=== PATIENT | female | born 1970 | race Caucasian/White ===

== ENCOUNTER 2018-02-01 17:10 | Emergency (ER) | payer OTHER ==
--- NOTE | 2018-02-01 17:35 | Emergency Department Record ---
History of Present Illness - General Chief Complaint: Abdominal Pain Stated Complaint: ABD PAIN Time Seen by Provider: 02/01/18 17:27 Source: Patient, RN notes reviewed Mode of Arrival: Ambulatory - History of Present Illness Initial Comments: patient states 5 days of epigastric abd pain and and had a bile tasting burps 5 days ago. Today she ate shrimp and butter and that went well and a granola bar. indigestion after eating and she was seen at [facility] today and sent to ED by Patrica and her primary [facility]. UA was negative . No dysuria . PSH carpal tunnel rebecca colonoscopy 2009 negative and she had a hysteropopia because she has a thicken uterus and fibroid cysts. June 2017, EKG done by [facility] and I reviewed it NSR , No acute changes. Onset/Timin -: Days(s) Severity: Mild Severity scale (1-10): 1 - Related Data Home Medications Medication Instructions Recorded Confirmed Last Taken Aspirin/Acetaminophen/Caffeine 1 each PO BID PRN 02/01/18 02/01/18 02/01/18 [Excedrin Migraine Caplet] Previous Rx's Medication Instructions Recorded Omeprazole 20 mg PO DAILY #30 cap. 02/01/18 Allergies Allergy/AdvReac Type Severity Reaction Status Date / Time Penicillins Allergy Intermediate RASH Verified 02/01/18 17:24 Travel Screening - Travel/Exposure Within Last 30 Days Have you traveled within the last 30 days?: No - Travel/Exposure Within Last Year Have you traveled outside the [place] in the last year?: No - Additonal Travel Details Have you been exposed to anyone with a communicable illness?: No - Travel Symptoms Symptom Screening: None Review of Systems Reviewed: No additional complaints except as noted below Constitutional: Reports: As per HPI. Denies: Chills, Fever, Malaise, Night sweats, Weakness, Weight change Eyes: Reports: As per HPI. Denies: Eye discharge, Eye pain, Photophobia, Vision change ENT: Reports: As per HPI. Denies: Congestion, Dental pain, Ear pain, Epistaxis , Hearing loss, Throat pain Respiratory: Reports: As per HPI. Denies: Cough, Dyspnea, Hemoptysis, Stridor, Wheezes Cardiovascular: Reports: As per HPI. Denies: Arrhythmia, Chest pain, Dyspnea on exertion, Edema, Murmurs, Orthopnea, Palpitations, Paroxysmal nocturnal dyspnea, Rheumatic Fever, Syncope Endocrine: Reports: As per HPI. Denies: Fatigue, Heat or cold intolerance, Polydipsia, Polyuria Gastrointestinal: Reports: As per HPI, Abdominal pain, Diarrhea, Nausea. Denies : Constipation, Hematemesis, Hematochezia, Melena, Vomiting Genitourinary: Reports: As per HPI. Denies: Abnormal menses, Discharge, Dyspareunia, Dysuria, Frequency, Hematuria, Incontinence, Retention, Urgency Musculoskeletal: Reports: As per HPI. Denies: Arthralgia, Back pain, Gout, Joint swelling, Myalgia, Neck pain Skin: Reports: As per HPI. Denies: Bruising, Change in color, Change in hair/ nails, Lesions, Pruritus, Rash Neurological: Reports: As per HPI. Denies: Abnormal gait, Confusion, Headache, Numbness, Paresthesias, Seizure, Tingling, Tremors, Vertigo, Weakness Psychiatric: Reports: As per HPI. Denies: Anxiety, Auditory hallucinations, Depression, Homicidal thoughts, Suicidal thoughts, Visual hallucinations Hematological/Lymphatic: Reports: As per HPI. Denies: Anemia, Blood Clots, Easy bleeding, Easy bruising, Swollen glands Past Medical History - SOCIAL HISTORY Smoking Status: Never smoker Alcohol Use: Rare, Occasional Drug Use: None - RESPIRATORY Hx Respiratory Disorders: No - CARDIOVASCULAR Hx Cardio Disorders: No - NEURO Hx Neuro Disorders: Yes Hx Seizures: Yes (as teenager but none since) - GI Hx GI Disorders: Yes Hx Reflux: Yes - Hx Bladder Problem: Yes (suspension) - ENDOCRINE Hx Endocrine Disorders: No - MUSCULOSKELETAL Hx Musculoskeletal Disorders: No - PSYCH Hx Psych Problems: Yes Hx Depression: Yes - HEMATOLOGY/ONCOLOGY Hx Hematology/Oncology Disorders: No Family Medical History Any Significant Family History?: Yes Hx Cancer: Father, Grandparents Hx HTN: Mother, Grandparents Hx Stroke: Grandparents Physical Exam - General General Appearance: Alert, Oriented x3, Cooperative, No acute distress - Head Head exam: Normal inspection - Eye Eye exam: Normal appearance, PERRL Pupils: Normal accommodation - ENT ENT exam: Normal exam, Mucous membranes moist, Normal external ear exam, Normal orophraynx, TM's normal bilaterally Ear exam: Normal external inspection. negative: External canal tenderness Nasal Exam: Normal inspection. negative: Discharge, Sinus tenderness Mouth exam: Normal external inspection, Tongue normal Teeth exam: Normal inspection. negative: Dental caries Throat exam: Normal inspection. negative: Tonsillar erythema, Tonsillar exudate - Neck Neck exam: Normal inspection, Full ROM. negative: Tenderness - Respiratory Respiratory exam: Normal lung sounds bilaterally. negative: Respiratory distress - Cardiovascular Cardiovascular Exam: Regular rate, Normal rhythm, Normal heart sounds - GI/Abdominal GI/Abdominal exam: Soft, Normal bowel sounds, Tenderness (epigastric indigestion and nausea) - Rectal Rectal exam: Deferred - exam: Deferred - Extremities Extremities exam: Normal inspection, Full ROM, Normal capillary refill. negative: Tenderness - Back Back exam: Reports: Normal inspection, Full ROM. Denies: Muscle spasm, Rash noted, Tenderness - Neurological Neurological exam: Alert, Normal gait, Oriented X3, Reflexes normal - Psychiatric Psychiatric exam: Normal affect, Normal mood - Skin Skin exam: Dry, Intact, Normal color, Warm Course Vital Signs 02/01/18 17:17 Temperature 97.4 F L Pulse Rate 85 Respiratory 16 Rate Blood Pressure 124/53 Pulse Ox 98 - Reevaluation(s) Reevaluation #1: peptobismal giving her black stools. She drank one bottle over the last week. 02/01/18 18:56 Medical Decision Making - Data Complexity MDM Data: Labs Ordered and/or Reviewed, X-Ray Ordered and/or Reviewed (US of abd negative) - Lab Data Result diagrams: 02/01/18 17:30 02/01/18 17:30 Disposition Clinical Impression: Epigastric abdominal pain GERD (gastroesophageal reflux disease) Qualifiers: Esophagitis presence: without esophagitis Qualified Code(s): K21.9 - Gastro- esophageal reflux disease without esophagitis Gastritis Qualifiers: Gastritis type: unspecified gastritis Chronicity: acute Gastritis bleeding: without bleeding Qualified Code(s): K29.00 - Acute gastritis without bleeding Disposition: Home, Self-Care Condition: (1) Good Instructions: Gastritis (ED), Gastroesophageal Reflux Disease (ED) Additional Instructions: follow up with family next week nigel one table spoon after meals and bedtime Prescriptions: Omeprazole 20 mg PO DAILY #30 Forms: Patient Portal Access Time of Disposition: 18:55 Quality - Quality Measures Quality Measures: N/A - Blood Pressure Screening Does Patient Have Any of the Following: No Blood Pressure Classification: Pre-Hypertensive BP Reading Systolic Measurement: 124 Diastolic Measurement: 53 Screening for High Blood Pressure: < Pre-Hypertensive BP, F/U Documented > [ G8950] Pre-Hypertensive Follow-up Interventions: Referral to alternative/primary care provider.
[2018-02-01] MEDS ORDERED: 0.9 % SODIUM CHLORIDE 1,000 ML BAG IV ONE (17:37)
[2018-02-01] MEDS ORDERED: MAGNESIUM HYDROXIDE/AL HYDROX 30 ML, LIDOCAINE VISC 2% 15ML 15 ML PO ONE ×2 (17:38)
[2018-02-01 17:49] LABS: BASO % 0.4 % (0-6); EOS % 7.5 % (0-6); HEMOGLOBIN 12.6 gm/dl (11.6-16.0); LYMPH % 36.8 % (16-45); MEAN CELL VOLUME 86.7 fl (81-97); MEAN CORPUSCULAR HGB CONC 32.3 g/dl (32-36); MEAN PLATELET VOLUME 9.2 fl (7.4-10.4); MONO % 7.3 % (0-9); PLATELET COUNT 274 K/uL (130-400); RED CELL DISTRIBUTION WIDTH 13.3 % (11.5-14.5); WHITE BLOOD COUNT W/O DIFF 5.1 K/uL (4.2-12.2)
[2018-02-01 17:56] LABS: URINE APPEARANCE CLEAR; URINE BILIRUBIN NEGATIVE (NEGATIVE); URINE BLOOD NEGATIVE (NEGATIVE); URINE COLOR YELLOW; URINE GLUCOSE (UA) NEGATIVE (NEGATIVE); URINE KETONE TRACE (NEGATIVE); URINE LEUKOCYTE ESTERASE NEGATIVE (NEGATIVE); URINE NITRITE NEGATIVE (NEGATIVE); URINE PROTEIN NEGATIVE (NEGATIVE); URINE UROBILINOGEN 0.2 E.U./dL (0.20 - 1.00)
[2018-02-01 17:58] LABS: HCG,QUALITATIVE URINE NEGATIVE (NEGATIVE)
[2018-02-01 18:06] LABS: BLOOD UREA NITROGEN 15 mg/dL (6-20); CREATININE 0.7 mg/dL (0.5-0.9); EST GLOMERULAR FILTRATION RATE > 60 mL/min
[2018-02-01 18:07] LABS: TOTAL PROTEIN 7.5 g/dL (6.6-8.7)
[2018-02-01 18:09] LABS: GLUCOSE,RANDOM 103 mg/dL (74-109)
[2018-02-01 18:11] LABS: ALT/SGPT 14 U/L (<33)
[2018-02-01 18:12] LABS: ALBUMIN 4.3 g/dL (4.0-5.0); ALKALINE PHOSPHATASE 59 U/L (35-104); AST/SGOT 15 U/L (10.0-35.0); LIPASE 52 U/L (13-60)
[2018-02-01 18:14] LABS: BILIRUBIN,DIRECT < 0.2 mg/dL (0-0.3)
== END 2018-02-01 19:08 | disposition home or self-care (01) ==
LOC: ER 17:14
DX: K21.9 Gastro-esophageal reflux disease without esophagitis (principal); K29.00 Acute gastritis without bleeding; R10.31 Right lower quadrant pain
CPT/HCPCS: 76700; 80048; 80076; 81003; 81025; 83690; 85025; 99284; J7030

== ENCOUNTER 2018-10-10 21:34 | Emergency (ER) | payer OTHER ==
--- NOTE | 2018-10-10 22:41 | Emergency Department Record ---
History of Present Illness - General Chief complaint: Female Urogenital Problem Stated complaint: FEMALE ISSUES Time Seen by Provider: 10/10/18 22:26 Source: Patient Mode of Arrival: Ambulatory Limitations: No limitations - History of Present Illness Initial comments: 48 yo female presents to ED for evaluation of a "hole" between the posterior aspect of the vagina and the rectum. Patient reports that she first noticed the symptoms approximately 2 days ago, denies fevers, chills, or discharge from the area. Patient denies trauma or injury. Patient denies fevers, chills, or recent illness. Patient does report an episiotomy approximately 17 years ago, reports that she has been participating in a newer boot-camp work-out. Onset/Timin -: Days(s) Location: [place], Perineum Severity: Moderate Consistency: Constant Improves with: None Worsens with: None Associated Symptoms: Denies other symptoms - Related Data Allergies Allergy/AdvReac Type Severity Reaction Status Date / Time Penicillins Allergy Intermediate RASH Verified 10/10/18 22:03 Travel Screening - Travel/Exposure Within Last 30 Days Have you traveled within the last 30 days?: No - Travel Symptoms Symptom Screening: None Review of Systems Constitutional: Denies: Chills, Fever, Malaise, Night sweats Eyes: Denies: Eye discharge, Eye pain ENT: Denies: Congestion, Ear pain, Epistaxis Respiratory: Denies: Cough, Dyspnea Cardiovascular: Denies: Chest pain, Dyspnea on exertion Endocrine: Denies: Fatigue, Heat or cold intolerance Gastrointestinal: Denies: Abdominal pain, Nausea, Vomiting Genitourinary: Denies: Incontinence, Retention Musculoskeletal: Denies: Arthralgia, Back pain Skin: Denies: Bruising, Change in color Neurological: Denies: Abnormal gait, Confusion, Seizure Psychiatric: Denies: Anxiety Hematological/Lymphatic: Denies: Anemia, Blood Clots Past Medical History - SOCIAL HISTORY Smoking Status: Never smoker - RESPIRATORY Hx Respiratory Disorders: No - CARDIOVASCULAR Hx Cardio Disorders: No - NEURO Hx Neuro Disorders: Yes Hx Headaches: Yes Hx Seizures: Yes (as teenager but none since) - GI Hx GI Disorders: Yes Hx Reflux: Yes - Hx Genitourinary Disorders: No Hx Bladder Problem: Yes (suspension) - ENDOCRINE Hx Endocrine Disorders: No - MUSCULOSKELETAL Hx Musculoskeletal Disorders: No - PSYCH Hx Psych Problems: Yes Hx Depression: Yes - HEMATOLOGY/ONCOLOGY Hx Hematology/Oncology Disorders: No Family Medical History Any Significant Family History?: Yes Hx Cancer: Father, Grandparents Hx HTN: Mother, Grandparents Hx Stroke: Grandparents Physical Exam - General General Appearance: Alert, Oriented x3, Cooperative, No acute distress Limitations: No limitations - Head Head exam: Atraumatic, Normocephalic, Normal inspection Head exam detail: negative: Abrasion, Contusion, Bautista's sign, General tenderness, Hematoma, Laceration - Eye Eye exam: Normal appearance. negative: Conjunctival injection, Periorbital swelling, Periorbital tenderness, Scleral icterus - ENT Ear exam: negative: Auricular hematoma, Auricular trauma Nasal Exam: negative: Active bleeding, Discharge, Dried blood, Foreign body Mouth exam: negative: Drooling, Laceration, Muffled voice, Tongue elevation - Neck Neck exam: Normal inspection. negative: Meningismus, Tenderness - Respiratory Respiratory exam: Normal lung sounds bilaterally. negative: Rales, Respiratory distress, Rhonchi, Stridor - Cardiovascular Cardiovascular Exam: Regular rate, Normal rhythm, Normal heart sounds - GI/Abdominal GI/Abdominal exam: Soft. negative: Rebound, Rigid, Tenderness - exam: Other (There appears to be area of tissues dehiscence to the posterior fourchette of the vaginal opening, ? from previous epiosotomy) - Extremities Extremities exam: Normal inspection. negative: Pedal edema, Tenderness - Back Back exam: Denies: CVA tenderness (R), CVA tenderness (L) - Neurological Neurological exam: Alert, Normal gait, Oriented X3 - Psychiatric Psychiatric exam: Normal affect, Normal mood - Skin Skin exam: Normal color. negative: Abrasion Type of lesion: negative: abrasion Course Vital Signs 10/10/18 21:54 Temperature 98.2 F Pulse Rate [ 65 Left] Respiratory 16 Rate Blood Pressure 132/80 [Left] Pulse Ox 99 - Reevaluation(s) Reevaluation #1: 10/10/18 22:57 Patient was seen and examined, will attempt to reach the on-call for Dr. Padilla for consultation and to arrange for follow-up. Reevaluation #2: 10/10/18 23:23 Case was discussed with Dr. Ward, will have the patient call Dr. Argueta's office in the morning for a follow-up appointment with Dr. Murray in 1-2 days as directed. Patient was called re: the plan of care and instructed to avoid any further strenuous activity/exercise until seen by Dr. Murray. Patient appears stable for discharge at this time. Disposition Disposition: Discharge Clinical Impression: Episiotomy dehiscence Disposition: Home, Self-Care Condition: (2) Stable Instructions: Wound Dehiscence (ED) Additional Instructions: Return to ED if your symptoms worsen or if you have any concerns. Follow-up with Dr. Padilla in 3-5 days as directed. Forms: Patient Portal Access Time of Disposition: 22:41 Quality - Quality Measures Quality Measures: N/A - Blood Pressure Screening Does Patient Have Any of the Following: No Blood Pressure Classification: Normal BP Reading Systolic Measurement: 101 Diastolic Measurement: 65 Screening for High Blood Pressure: < Normal BP, F/U Not Required > [G8783]
== END 2018-10-10 22:54 | disposition home or self-care (01) ==
LOC: ER 21:34
DX: O90.1 Disruption of perineal obstetric wound (principal)
CPT/HCPCS: 99283

== ENCOUNTER 2019-02-06 21:02 | Emergency (ER) | payer OTHER ==
[2019-02-06 21:19] LABS: URINE APPEARANCE CLEAR; URINE BILIRUBIN NEGATIVE (NEGATIVE); URINE BLOOD NEGATIVE (NEGATIVE); URINE COLOR YELLOW; URINE GLUCOSE (UA) NEGATIVE (NEGATIVE); URINE KETONE NEGATIVE (NEGATIVE); URINE LEUKOCYTE ESTERASE LARGE (NEGATIVE); URINE NITRITE NEGATIVE (NEGATIVE); URINE PROTEIN NEGATIVE (NEGATIVE); URINE UROBILINOGEN 0.2 E.U./dL (0.20 - 1.00)
--- NOTE | 2019-02-06 21:19 | Emergency Department Record ---
History of Present Illness - General Chief complaint: Female Urogenital Problem Stated complaint: UTI? Time Seen by Provider: 02/06/19 21:13 Source: Patient Mode of Arrival: Ambulatory Limitations: No limitations - History of Present Illness Initial comments: 49 yo female presents to ED for evaluation of burning with urination, urinary frequency symptoms for the past 48 hours. Patient reports simialr symtpoms related to a UTI, denies fevers, chills, flank pain, nausea, vomiting, or abdominal pain symptoms. Patient denies health problems at her baseline, reports that she is sexually active, dating but in a monogamous relationship. MD Complaint: Other Onset/Timin -: Days(s) Radiation: Non-radiating Severity: Moderate Quality: Burning Consistency: Intermittent Improves with: None Worsens with: Urination Associated Symptoms: Denies other symptoms - Related Data Sexually active: Yes Previous Rx's Medication Instructions Recorded Cephalexin [Keflex] 500 mg PO TID #20 cap 02/06/19 Metronidazole [Flagyl] 500 mg PO BID #13 tablet 02/06/19 Allergies Allergy/AdvReac Type Severity Reaction Status Date / Time Penicillins Allergy Intermediate RASH Verified 02/06/19 21:11 Review of Systems Constitutional: Denies: Chills, Fever, Malaise, Night sweats Eyes: Denies: Eye discharge, Eye pain ENT: Denies: Congestion, Ear pain, Epistaxis Respiratory: Denies: Cough, Dyspnea Cardiovascular: Denies: Chest pain, Dyspnea on exertion Endocrine: Denies: Fatigue, Heat or cold intolerance Gastrointestinal: Denies: Abdominal pain, Nausea, Vomiting Genitourinary: Reports: Dysuria, Frequency. Denies: Hematuria, Incontinence, Retention Musculoskeletal: Denies: Arthralgia, Back pain Skin: Denies: Bruising, Change in color Neurological: Denies: Abnormal gait, Confusion, Headache, Seizure Psychiatric: Denies: Anxiety Hematological/Lymphatic: Denies: Anemia, Blood Clots Past Medical History - SOCIAL HISTORY Smoking Status: Never smoker - RESPIRATORY Hx Respiratory Disorders: No - CARDIOVASCULAR Hx Cardio Disorders: No - NEURO Hx Neuro Disorders: Yes Hx Headaches: Yes Hx Seizures: Yes (as teenager but none since) - GI Hx GI Disorders: Yes Hx Reflux: Yes - Hx Genitourinary Disorders: No Hx Bladder Problem: Yes (suspension) - ENDOCRINE Hx Endocrine Disorders: No - MUSCULOSKELETAL Hx Musculoskeletal Disorders: No - PSYCH Hx Psych Problems: Yes Hx Depression: Yes - HEMATOLOGY/ONCOLOGY Hx Hematology/Oncology Disorders: No Family Medical History Hx Cancer: Father, Grandparents Hx HTN: Mother, Grandparents Hx Stroke: Grandparents Physical Exam - General General Appearance: Alert, Oriented x3, Cooperative, No acute distress Limitations: No limitations - Head Head exam: Atraumatic, Normocephalic, Normal inspection Head exam detail: negative: Abrasion, Contusion, Bautista's sign, General tenderness, Hematoma, Laceration - Eye Eye exam: Normal appearance. negative: Conjunctival injection, Periorbital swelling, Periorbital tenderness, Scleral icterus - ENT Ear exam: negative: Auricular hematoma, Auricular trauma Nasal Exam: negative: Active bleeding, Discharge, Dried blood, Foreign body Mouth exam: negative: Drooling, Laceration, Muffled voice, Tongue elevation - Neck Neck exam: Normal inspection. negative: Meningismus, Tenderness - Respiratory Respiratory exam: Normal lung sounds bilaterally. negative: Rales, Respiratory distress, Rhonchi, Stridor - Cardiovascular Cardiovascular Exam: Regular rate, Normal rhythm, Normal heart sounds - GI/Abdominal GI/Abdominal exam: Soft. negative: Rebound, Rigid, Tenderness - Rectal Rectal exam: Deferred - exam: Deferred - Extremities Extremities exam: Normal inspection. negative: Pedal edema, Tenderness - Back Back exam: Denies: CVA tenderness (R), CVA tenderness (L) - Neurological Neurological exam: Alert, Normal gait, Oriented X3 - Psychiatric Psychiatric exam: Normal affect, Normal mood - Skin Skin exam: Normal color. negative: Abrasion Type of lesion: negative: abrasion Course - Reevaluation(s) Reevaluation #1: 02/06/19 21:34 UA was reviewed: 1+ Bacteria 3-5 WBCs 3+ Amorphous sediment Reevaluation #2: 02/06/19 21:55 Wet prep was reviewed: No clue cells No yeast No trichomonas Patient was updated on all results, examination does not appear c/w GC/Chlaydia, cultures sent however. Will treat for UTI and Possible bacterial vaginosis (Keflex/Flagyl) as directed. Patient was updated on all results and pending cultures. Patient appears stable for discharge at this time. Disposition Disposition: Discharge Clinical Impression: Bacterial vaginosis Acute cystitis Qualifiers: Hematuria presence: without hematuria Qualified Code(s): N30.00 - Acute cystitis without hematuria Disposition: Home, Self-Care Condition: (2) Stable Instructions: Bacterial Vaginosis (ED) Additional Instructions: Return to ED if your symptoms worsen or if you have any concerns. Flagyl, Keflex as directed. Follow-up with your family doctor in 3-5 days as directed. Prescriptions: Metronidazole [Flagyl] 500 mg PO BID #13 tablet Cephalexin [Keflex] 500 mg PO TID #20 cap Forms: Patient Portal Access Time of Disposition: 22:01 Quality - Quality Measures Quality Measures: N/A - Blood Pressure Screening Does Patient Have Any of the Following: No Blood Pressure Classification: Pre-Hypertensive BP Reading Systolic Measurement: 128 Diastolic Measurement: 80 Screening for High Blood Pressure: < Pre-Hypertensive BP, F/U Documented > [G8950] Pre-Hypertensive Follow-up Interventions: Referral to alternative/primary care provider.
[2019-02-06 21:31] LABS: URINE EPITHELIAL CELLS 0 - 2 (FEW); URINE RBC 0 - 2 (NONE SEEN)
[2019-02-06 21:32] LABS: URINE AMORPHOUS SEDIMENT 3+; URINE BACTERIA 1+
[2019-02-06] MEDS: METRONIDAZOLE 250 MG TABLET PO ONE (22:09)
[2019-02-06] MEDS: CEPHALEXIN 500 MG CAPSULE PO STA (22:09)
== END 2019-02-06 22:14 | disposition home or self-care (01) ==
LOC: ER 21:02
DX: N76.0 Acute vaginitis (principal); N30.00 Acute cystitis without hematuria
CPT/HCPCS: 99284 ×2; 81001; Q0111; 87210